=== PATIENT | female | born 1990 | race Caucasian/White ===

== ENCOUNTER → 2024-01-20 | Outpatient (CLI) | payer BC ==
[~2024-01-20] MED LIST: AEROSOL THERAPY1 DEV INH; ALBUTEROL2.5 MG/3 M IH; AMOXICILLIN AND1 TA2 PO; DOXYCYCLINE MO100 M3 PO; [UNRECOGNIZED DRUG - SUPPLY] MC
[2024-01-20 08:22] LABS: ALBUMIN 4.2 g/dL (3.5-5.0)
[2024-01-20 08:24] LABS: CALCIUM 9.5 mg/dL (8.3-10.5)
[2024-01-20 08:25] LABS: TOTAL PROTEIN 7.8 g/dL (6.4-8.3)
[2024-01-20 08:27] LABS: TOTAL BILIRUBIN 0.6 mg/dL (0.2-1.2)
[2024-01-20 09:10] LABS: BASO # 0.02 K/mm3 (0.02-0.10); EOS # 0.16 K/mm3 (0.04-0.40); EOS % 2.2 % (1.0-5.0); HEMATOCRIT 41.1 % (37.0-47.0); HEMOGLOBIN 13.6 g/dL (12.5-16.0); LYMPH# 1.98 K/mm3 (1.50-4.00); MEAN CELL VOLUME 89 fl (78-100); MEAN CORPUSCULAR HEMOGLOBIN 29 pg (27-31); MEAN CORPUSCULAR HGB CONC 33 g/dL (33-37); MEAN PLATELET VOLUME 9.9 fl (7.4-10.4); MONO # 0.58 K/mm3 (0.20-0.80); NEU # 4.62 K/mm3 (1.40-6.50); PLATELET COUNT 329 K/mm3 (130-400); RED BLOOD COUNT 4.64 M/mm3 (4.10-5.30); RED CELL DISTRIBUTION WIDTH 12.3 % (11.5-14.5); WHITE BLOOD COUNT 7.4 K/mm3 (4.8-10.8)
== END ==
LOC: LAB 08:02
DX: R07.0 Pain in throat (principal)

== ENCOUNTER → 2024-04-20 | Outpatient (CLI) | payer BC ==
[2024-04-20 07:29] LABS: BASO # 0.01 K/mm3 (0.02-0.10); EOS # 0.07 K/mm3 (0.04-0.40); EOS % 1.2 % (1.0-5.0); HEMOGLOBIN 14.1 g/dL (12.5-16.0); LYMPH# 2.22 K/mm3 (1.50-4.00); MEAN CELL VOLUME 91 fl (78-100); MEAN CORPUSCULAR HEMOGLOBIN 31 pg (27-31); MEAN CORPUSCULAR HGB CONC 34 g/dL (33-37); MEAN PLATELET VOLUME 9.4 fl (7.4-10.4); MONO # 0.43 K/mm3 (0.20-0.80); NEU # 3.35 K/mm3 (1.40-6.50); PLATELET COUNT 357 K/mm3 (130-400); RED BLOOD COUNT 4.62 M/mm3 (4.10-5.30); RED CELL DISTRIBUTION WIDTH 12.2 % (11.5-14.5); WHITE BLOOD COUNT 6.1 K/mm3 (4.8-10.8)
[2024-04-20 07:36] LABS: ALBUMIN 4.5 g/dL (3.5-5.0)
[2024-04-20 07:37] LABS: CALCIUM 9.6 mg/dL (8.3-10.5)
[2024-04-20 07:39] LABS: TOTAL PROTEIN 8.3 g/dL (6.4-8.3)
[2024-04-20 07:40] LABS: TOTAL BILIRUBIN 0.8 mg/dL (0.2-1.2)
[2024-04-20 15:50] LABS: HEPATITIS B CORE AB TOTAL Negative (Negative); HEPATITIS B SURFACE ANTIGEN Negative (Negative); HEPATITIS C VIRUS ANTIBODY Negative (Nonreactiv)
[2024-04-21 11:22] LABS: TB GOLD INTERPRETATION.TB GOLD Negative (Negative)
== END ==
LOC: LAB 07:12
PROVIDERS: Physician Assistant
DX: Z79.899 Other long term (current) drug therapy (principal)